=== PATIENT | female | born 1960 | race Caucasian/White ===

== ENCOUNTER 2017-12-06 15:47 | Inpatient (IN) | payer OTHER ==
[~2017-12-06] VITALS: Ht 157.5 cm; Wt 86.2 kg
[2017-12-06 15:56] VITALS: BP_SYST 200
[2017-12-06] MEDS ORDERED: NACL 0.9% 1,000 ML IV ONE ×2 (16:32→17:45)
[2017-12-06 16:40] LABS: BILIRUBIN,URINE NEGATIVE (NEGATIVE); BLOOD, URINE 3+ (NEGATIVE); CLARITY/URINE CLEAR (CLEAR); COLOR,URINE YELLOW (YELLOW); GLUCOSE,URINE NEGATIVE (NEGATIVE); KETONES,URINE NEGATIVE (NEGATIVE); LEUKOCYTE ESTERASE ,URINE NEGATIVE (NEGATIVE); NITRITE, URINE NEGATIVE (NEGATIVE); PROTEIN URINE 2+ (NEGATIVE)
[2017-12-06 16:45] LABS: RBC,URINE >100 /HPF (0-3)
[2017-12-06] MEDS ORDERED: ONDANSETRON HCL 4 MG/2 ML VIAL IVP ONE (16:45)
[2017-12-06] MEDS ORDERED: KETOROLAC TROMETHAMINE 30 MG VIAL IVP ONE (16:45)
[2017-12-06 16:46] LABS: BACTERIA,URINE FEW /HPF (None Seen); WBC,URINE 0-3 /HPF (0-3)
[2017-12-06 17:10] LABS: BASOPHILS # (AUTO) 0.1 K/uL (0.0-0.2); BASOPHILS % (AUTO) 0.8 % (0.0-2.0); EOSINOPHILS # (AUTO) 0.1 K/uL (0.0-0.4); EOSINOPHILS % (AUTO) 0.8 % (0.0-4.0); HEMATOCRIT 39.3 % (36-48); HEMOGLOBIN 12.9 g/dL (12.0-16.0); LYMPHOCYTES # (AUTO) 1.3 K/uL (1.0-5.5); LYMPHOCYTES % (AUTO) 10.9 % (20.5-51.5); MEAN CORPUSCULAR HEMOGLOBIN 29 pg (27-31); MEAN CORPUSCULAR HGB CONC 33 % (32-36); MEAN CORPUSCULAR VOLUME 87 fL (79.0-98.0); MONOCYTES # (AUTO) 0.8 K/uL (0.0-1.0); MONOCYTES % (AUTO) 6.4 % (1.7-9.3); NEUTROPHILS % (AUTO) 81.1 % (40.0-70.0); PLATELET COUNT (AUTO) 291 K/uL (130-430); RED BLOOD CELL COUNT(AUTO) 4.51 MIL/uL (4.2-6.2); RED CELL DISTRIBUTION WIDTH 12.6 % (9.0-15.0); WHITE BLOOD COUNT (AUTO) 12.3 K/uL (4.8-10.8)
[2017-12-06 17:23] LABS: CALCIUM 9.9 mg/dL (8.4-11.0); CREATININE 0.99 mg/dL (0.55-1.30); POTASSIUM 4.1 mmol/L (3.5-5.1)
[2017-12-06 17:26] LABS: PROTHROMBIN TIME 10.1 SECS (9.5-12.5)
[2017-12-06 17:28] LABS: ALBUMIN 3.9 g/dL (3.4-4.8); TOTAL BILIRUBIN 0.4 mg/dL (0.0-1.0)
[2017-12-06] MEDS ORDERED: cefTRIAXone 2 GM VIAL ONE (18:51)
[2017-12-06 19:18] VITALS: BP_SYST 179
[2017-12-06] MEDS ORDERED: LOSA1TAB3 PO (19:29)
[2017-12-06] MEDS ORDERED: TOPXL100 PO (19:29)
[2017-12-06] MEDS ORDERED: CAT.1 PO (19:29)
[2017-12-06 19:40] VITALS: BP_SYST 179
[2017-12-06 19:45] VITALS: BP_SYST 161
[2017-12-06] MEDS ORDERED: [UNRECOGNIZED DRUG - OTHER] IV ONE (20:00)
[2017-12-06] MEDS ORDERED: NACL 0.9% 1,000 ML IV SCH ×2 (20:30→21:00)
[2017-12-06] MEDS: NACL 0.9% 1,000 ML IV SCH ×2 (22:23→22:28)
[2017-12-06] MEDS ORDERED: ALBUTEROL SULFATE 0.083% 2.5 MG/3 ML VIAL.NEB INH PRN (22:30)
[2017-12-06] MEDS ORDERED: ONDANSETRON HCL 4 MG/2 ML VIAL IVP PRN (22:30)
[2017-12-06] MEDS ORDERED: MORPHINE 2 MG/ML INJ. SYRINGE IVP PRN (22:30)
[2017-12-06] MEDS ORDERED: HYDROcodone/ACETAMIN 5-325 MG TAB (NORCO/ VICODIN) PO PRN (22:30)
[2017-12-06] MEDS ORDERED: hydrALAZINE HCL 20 MG/ML VIAL IVP PRN (22:45)
[2017-12-06 23:28] VITALS: BP_SYST 146
[2017-12-06 23:37] VITALS: BP_SYST 146
[2017-12-07] MEDS ORDERED: PIPERACILLIN/TAZOBACTAM 3.375 GM/VIAL (ZOSYN) IV ONE ×2 (00:34→05:25)
[2017-12-07] MEDS: PIPERACILLIN/TAZO 3.375/DEX-IS 50 ML IV SCH ×5 (00:38→23:14)
[2017-12-07] MEDS: NACL 0.9% 1,000 ML IV SCH ×4 (05:31→23:15)
[2017-12-07 06:27] LABS: BASOPHILS # (AUTO) 0.1 K/uL (0.0-0.2); BASOPHILS % (AUTO) 0.8 % (0.0-2.0); EOSINOPHILS # (AUTO) 0.1 K/uL (0.0-0.4); EOSINOPHILS % (AUTO) 1.3 % (0.0-4.0); HEMATOCRIT 36.6 % (36-48); HEMOGLOBIN 12.2 g/dL (12.0-16.0); LYMPHOCYTES # (AUTO) 1.8 K/uL (1.0-5.5); LYMPHOCYTES % (AUTO) 19.4 % (20.5-51.5); MEAN CORPUSCULAR HEMOGLOBIN 29 pg (27-31); MEAN CORPUSCULAR HGB CONC 33 % (32-36); MEAN CORPUSCULAR VOLUME 88 fL (79.0-98.0); MONOCYTES # (AUTO) 0.9 K/uL (0.0-1.0); MONOCYTES % (AUTO) 9.5 % (1.7-9.3); NEUTROPHILS # (AUTO) 6.1 K/uL (1.8-7.7); PLATELET COUNT (AUTO) 240 K/uL (130-430); RED BLOOD CELL COUNT(AUTO) 4.17 MIL/uL (4.2-6.2); RED CELL DISTRIBUTION WIDTH 12.7 % (9.0-15.0)
[2017-12-07 07:18] LABS: ANION GAP 11 (5-15); CALCIUM 8.7 mg/dL (8.4-11.0); CHLORIDE 107 mmol/L (98-107); CREATININE 1.05 mg/dL (0.55-1.30); GLUCOSE 115 mg/dL (70-99); POTASSIUM 4.3 mmol/L (3.5-5.1); SODIUM SERUM 141 mmol/L (136-145); UREA NITROGEN, BLOOD 17 mg/dL (8-21)
[2017-12-07 07:27] LABS: GFR AFRICAN AMERICAN 69 mL/min (>90)
[2017-12-07 07:28] LABS: ALANINE AMINOTRANSFERASE 22 U/L (12-78); ASPARTATE AMINOTRANSFERASE 19 U/L (10-37); TOTAL BILIRUBIN 0.6 mg/dL (0.0-1.0)
[2017-12-07 08:02] VITALS: BP_SYST 151
[2017-12-07] MEDS: METOPROLOL SUCCINATE 50 MG TAB.SR.24H (TOPROL XL) PO SCH (08:35)
[2017-12-07] MEDS ORDERED: IOHEXOL 0 ML IV ONE (09:39)
[2017-12-07] MEDS ORDERED: fentaNYL CITRATE/PF 100 MCG/2 ML AMP IVP PRN ×2 (09:45)
[2017-12-07] MEDS ORDERED: ONDANSETRON HCL 4 MG/2 ML VIAL IVP PRN (09:45)
[2017-12-07] MEDS ORDERED: KETOROLAC TROMETHAMINE 30 MG VIAL IVP PRN (09:45)
[2017-12-07] MEDS ORDERED: cefTRIAXone 1 GM IVPB PREMIX 50 ML IV ONE (10:00)
[2017-12-07] MEDS ORDERED: NS 1000 ML BAG IV ONE (10:00)
[2017-12-07] MEDS ORDERED: MIDAZOLAM HCL 5 MG/ML VIAL (VERSED) IV ONE (10:00)
[2017-12-07] MEDS ORDERED: MORPHINE SULFATE 10MG/10ML PF AMP EP ONE (10:00)
[2017-12-07] MEDS ORDERED: BUPIVACAINE /PF 0.75% 10 ML VIAL INJ ONE (10:00)
[2017-12-07] MEDS ORDERED: NS IRRIG SOLN 5000 ML IR ONE (10:00)
[2017-12-07 12:29] VITALS: BP_SYST 136
[2017-12-07 16:40] VITALS: BP_SYST 134
[2017-12-08 00:33] VITALS: BP_SYST 151
[2017-12-08] MEDS: PIPERACILLIN/TAZO 3.375/DEX-IS 50 ML IV SCH ×2 (05:10→11:29)
[2017-12-08] MEDS: NACL 0.9% 1,000 ML IV SCH (05:12)
[2017-12-08 07:50] VITALS: BP_SYST 179
[2017-12-08] MEDS: METOPROLOL SUCCINATE 50 MG TAB.SR.24H (TOPROL XL) PO SCH (09:36)
[2017-12-08] MEDS ORDERED: CIPR500S2 PO (10:40)
[2017-12-08] MEDS ORDERED: TAMS-11 PO (10:42)
[2017-12-08 12:09] VITALS: BP_SYST 130
[2017-12-08 12:39] VITALS: BP_SYST 130
== END 2017-12-08 12:30 | disposition home or self-care (01) | DRG 694 ==
LOC: SED 15:47 → STU 18:39
PROVIDERS: ADMIT Internal Medicine; ATTEND Internal Medicine
PROC: 0T768DZ Dilation of Right Ureter with Intraluminal Device, Via Natural or Artificial Opening Endoscopic (ICD-10-PCS; principal; 2017-12-07 09:00)
DX: N20.1 Calculus of ureter (principal); N13.6 Pyonephrosis; I10 Essential (primary) hypertension; Z82.49 Family history of ischemic heart disease and other diseases of the circulatory system; Z88.8 Allergy status to other drugs, medicaments and biological substances
CPT/HCPCS: 36415; 71045; 76000; 80053; 81000-TC; 82150-TC; 82550-TC; 83605; 83690-TC; 84484; 85025; 85610-TC; 85730-TC; 87040-TC; 87081; 93005; 96361; 96365; 96375; 99285; C1769; C2625; J0360; J0696; J1885; J2250; J2274; J2405; J2543; J3490; J7030; J7060; Q9967

== ENCOUNTER 2018-02-20 18:58 | Inpatient (IN) | payer OTHER ==
[~2018-02-20] VITALS: Ht 157.5 cm; Wt 88.9 kg
[~2018-02-20 18:58] MED LIST: CAT.1 PO; CIPR500S2 PO; LOSA1TAB3 PO; TAMS-11 PO; TOPXL100 PO
[2018-02-20 19:07] VITALS: BP_SYST 158
[2018-02-20] MEDS ORDERED: NACL 0.9% 1,000 ML IV ONE ×2 (19:45→22:15)
[2018-02-20] MEDS ORDERED: ACETAMINOPHEN 500 MG TABLET PO ONE (19:45)
[2018-02-20 20:02] LABS: BILIRUBIN,URINE NEGATIVE (NEGATIVE); BLOOD, URINE 1+ (NEGATIVE); COLOR,URINE YELLOW (YELLOW); GLUCOSE,URINE NEGATIVE (NEGATIVE); KETONES,URINE NEGATIVE (NEGATIVE); LEUKOCYTE ESTERASE ,URINE 2+ (NEGATIVE); NITRITE, URINE POSITIVE (NEGATIVE); PH,URINE 5.5 (5.0-8.0); PROTEIN URINE TRACE (NEGATIVE); UROBILINOGEN,URINE 0.2 (0.2-1.0)
[2018-02-20 20:16] LABS: CLARITY/URINE HAZY (CLEAR)
[2018-02-20 20:18] LABS: RBC,URINE 0-3 /HPF (0-3); WBC,URINE 20-50 /HPF (0-3)
[2018-02-20 20:19] LABS: BACTERIA,URINE MODERATE /HPF (None Seen); MUCUS,URINE None Seen /LPF (None Seen)
[2018-02-20 20:38] LABS: HEMATOCRIT 38.1 % (36-48); HEMOGLOBIN 12.7 g/dL (12.0-16.0); MEAN CORPUSCULAR HEMOGLOBIN 28 pg (27-31); MEAN CORPUSCULAR HGB CONC 33 % (32-36); MEAN CORPUSCULAR VOLUME 84 fL (79.0-98.0); PLATELET COUNT (AUTO) 234 K/uL (130-430); RED BLOOD CELL COUNT(AUTO) 4.52 MIL/uL (4.2-6.2); RED CELL DISTRIBUTION WIDTH 13.7 % (9.0-15.0); WHITE BLOOD COUNT (AUTO) 10.8 K/uL (4.8-10.8)
[2018-02-20 20:48] LABS: CALCIUM 9.8 mg/dL (8.4-11.0); CREATININE 0.8 mg/dL (0.55-1.30); POTASSIUM 4.1 mmol/L (3.5-5.1); PROTHROMBIN TIME 9.8 SECS (9.5-12.5)
[2018-02-20 20:52] LABS: BAND % (MANUAL) 6 % (0-6); BASOPHILS % (MANUAL) 0 % (0-2); EOSINOPHILS % (MANUAL) 1 % (0-7); LYMPHOCYTES % (MANUAL) 4 % (20-46); MONOCYTES % (MANUAL) 2 % (0-11)
[2018-02-20 20:53] LABS: ALBUMIN 3.4 g/dL (3.4-4.8); TOTAL BILIRUBIN 0.4 mg/dL (0.0-1.0)
[2018-02-20] MEDS ORDERED: cefTRIAXone 1 GM IVPB PREMIX 50 ML IV ONE ×2 (21:15→23:02)
[2018-02-20] MEDS ORDERED: LOSA50TA3 PO (21:41)
[2018-02-20] MEDS ORDERED: CAT.1 PO (21:41)
[2018-02-20] MEDS ORDERED: TOPXL100 PO (21:41)
[2018-02-20] MEDS ORDERED: ACETAMINOPHEN 325 MG TABLET PO PRN (22:15)
[2018-02-20 22:44] VITALS: BP_SYST 116
[2018-02-20] MEDS ORDERED: GENTAMICIN 120 mg/100 mL NS 100 ML IV SCH (23:00)
[2018-02-20] MEDS ORDERED: GENTAMICIN 120 mg/100 mL NS 100 ML IV ONE (23:03)
[2018-02-20] MEDS: NACL 0.9% 1,000 ML IV SCH (23:15)
[2018-02-21 04:19] VITALS: BP_SYST 115
[2018-02-21 07:57] VITALS: BP_SYST 146
[2018-02-21] MEDS: LOSARTAN POTASSIUM 50 MG TABLET (COZAAR) PO SCH (08:07)
[2018-02-21] MEDS: cloNIDine HCL 0.1 MG TABLET PO SCH ×2 (08:07→20:39)
[2018-02-21] MEDS: METOPROLOL SUCCINATE 50 MG TAB.SR.24H (TOPROL XL) PO SCH (08:08)
[2018-02-21] MEDS: NACL 0.9% 1,000 ML IV SCH ×2 (09:11→19:31)
[2018-02-21 11:34] VITALS: BP_SYST 139
[2018-02-21] MEDS ORDERED: *TOBRAMYCIN PER PHARMACY XX PRN (14:00)
[2018-02-21 15:44] VITALS: BP_SYST 132
[2018-02-21] MEDS: TOBRAMYCIN SULFATE 100 MG in NS 50 ML IV SCH (17:01)
[2018-02-21 19:25] VITALS: BP_SYST 126
[2018-02-21] MEDS: cefTRIAXone 1 GM IVPB PREMIX 50 ML IV SCH (20:38)
[2018-02-22 00:39] VITALS: BP_SYST 154
[2018-02-22] MEDS: TOBRAMYCIN SULFATE 100 MG in NS 50 ML IV SCH ×2 (04:47→16:37)
[2018-02-22] MEDS: NACL 0.9% 1,000 ML IV SCH ×4 (04:48→23:19)
[2018-02-22 08:17] VITALS: BP_SYST 148
[2018-02-22] MEDS: cloNIDine HCL 0.1 MG TABLET PO SCH ×2 (09:31→20:24)
[2018-02-22] MEDS: METOPROLOL SUCCINATE 50 MG TAB.SR.24H (TOPROL XL) PO SCH (09:32)
[2018-02-22] MEDS: LOSARTAN POTASSIUM 50 MG TABLET (COZAAR) PO SCH (09:32)
[2018-02-22 12:00] VITALS: BP_SYST 125
[2018-02-22 16:00] VITALS: BP_SYST 115
[2018-02-22 19:48] VITALS: BP_SYST 155
[2018-02-22] MEDS: cefTRIAXone 1 GM IVPB PREMIX 50 ML IV SCH (20:22)
[2018-02-23 00:24] VITALS: BP_SYST 144
[2018-02-23] MEDS: TOBRAMYCIN SULFATE 100 MG in NS 50 ML IV SCH ×2 (04:39→16:16)
[2018-02-23 07:13] LABS: HEMATOCRIT 37.7 % (36-48); HEMOGLOBIN 12.5 g/dL (12.0-16.0); MEAN CORPUSCULAR HEMOGLOBIN 28 pg (27-31); MEAN CORPUSCULAR HGB CONC 33 % (32-36); MEAN CORPUSCULAR VOLUME 86 fL (79.0-98.0); PLATELET COUNT (AUTO) 248 K/uL (130-430); RED CELL DISTRIBUTION WIDTH 13.8 % (9.0-15.0); WHITE BLOOD COUNT (AUTO) 6.6 K/uL (4.8-10.8)
[2018-02-23 07:44] LABS: ALBUMIN 3.1 g/dL (3.4-4.8); CREATININE 0.82 mg/dL (0.55-1.30); TOTAL BILIRUBIN 0.3 mg/dL (0.0-1.0)
[2018-02-23 08:11] VITALS: BP_SYST 147
[2018-02-23] MEDS: LOSARTAN POTASSIUM 50 MG TABLET (COZAAR) PO SCH (08:56)
[2018-02-23] MEDS: cloNIDine HCL 0.1 MG TABLET PO SCH (08:56)
[2018-02-23] MEDS: METOPROLOL SUCCINATE 50 MG TAB.SR.24H (TOPROL XL) PO SCH (08:56)
[2018-02-23] MEDS: NACL 0.9% 1,000 ML IV SCH (09:20)
[2018-02-23 11:12] LABS: ATYPICAL LYMPHOCYTES % 0 % (0-0); BAND % (MANUAL) 0 % (0-6); BASOPHILS % (MANUAL) 0 % (0-2); EOSINOPHILS % (MANUAL) 2 % (0-7); LYMPHOCYTES % (MANUAL) 36 % (20-46); MONOCYTES % (MANUAL) 6 % (0-11)
[2018-02-23 12:01] VITALS: BP_SYST 114
[2018-02-23 16:05] VITALS: BP_SYST 149
[2018-02-23 17:37] VITALS: BP_SYST 149
== END 2018-02-23 15:00 | disposition home or self-care (01) | DRG 872 ==
LOC: SED 18:58 → STU 22:13 → SMU 02-21 14:00
PROVIDERS: ADMIT Internal Medicine; ATTEND Internal Medicine
DX: A41.50 Gram-negative sepsis, unspecified (principal); N10 Acute pyelonephritis; I10 Essential (primary) hypertension; N20.0 Calculus of kidney; J44.9 Chronic obstructive pulmonary disease, unspecified; E66.9 Obesity, unspecified; Z68.35 Body mass index [BMI] 35.0-35.9, adult; Z87.442 Personal history of urinary calculi; Z88.8 Allergy status to other drugs, medicaments and biological substances; Z79.899 Other long term (current) drug therapy; Z90.49 Acquired absence of other specified parts of digestive tract
CPT/HCPCS: 36415; 71045; 76700-TC; 80053; 80200; 81000-TC; 83605; 85007; 85027; 85610-TC; 87040-TC; 87070-TC; 87086; 87186-TC; 87205-TC; 93005; 96361; 96365; 99291; J0696; J1580; J3260; J7030

== ENCOUNTER 2018-07-27 00:47 | Inpatient (IN) | payer OTHER ==
[~2018-07-27] VITALS: Ht 157.5 cm; Wt 86.2 kg
[2018-07-27 00:47] VITALS: BP_SYST 183
[~2018-07-27 00:47] MED LIST changes: -CIPR500S2 PO; -LOSA1TAB3 PO; +LOSA50TA3 PO; -TAMS-11 PO
[2018-07-27] MEDS ORDERED: MORPHINE 4 MG/ML INJ. SYRINGE IVP ONE (01:00)
[2018-07-27 01:27] LABS: BASOPHILS # (AUTO) 0.1 K/uL (0.0-0.2); BASOPHILS % (AUTO) 0.7 % (0.0-2.0); EOSINOPHILS # (AUTO) 0.1 K/uL (0.0-0.4); EOSINOPHILS % (AUTO) 1.4 % (0.0-4.0); HEMATOCRIT 42.2 % (36-48); HEMOGLOBIN 13.7 g/dL (12.0-16.0); LYMPHOCYTES # (AUTO) 2.1 K/uL (1.0-5.5); LYMPHOCYTES % (AUTO) 25.6 % (20.5-51.5); MEAN CORPUSCULAR HEMOGLOBIN 29 pg (27-31); MEAN CORPUSCULAR HGB CONC 33 % (32-36); MEAN CORPUSCULAR VOLUME 89 fL (79.0-98.0); MONOCYTES # (AUTO) 0.9 K/uL (0.0-1.0); MONOCYTES % (AUTO) 11.1 % (1.7-9.3); NEUTROPHILS # (AUTO) 5.1 K/uL (1.8-7.7); NEUTROPHILS % (AUTO) 61.2 % (40.0-70.0); PLATELET COUNT (AUTO) 227 K/uL (130-430); RED BLOOD CELL COUNT(AUTO) 4.74 MIL/uL (4.2-6.2); RED CELL DISTRIBUTION WIDTH 13.4 % (9.0-15.0); WHITE BLOOD COUNT (AUTO) 8.3 K/uL (4.8-10.8)
[2018-07-27 01:31] LABS: CALCIUM 10.3 mg/dL (8.4-11.0); CREATININE 0.75 mg/dL (0.55-1.30); POTASSIUM 3.6 mmol/L (3.5-5.1)
[2018-07-27 01:39] LABS: ALBUMIN 3.8 g/dL (3.4-4.8); TOTAL BILIRUBIN 0.6 mg/dL (0.0-1.0)
[2018-07-27 02:46] VITALS: BP_SYST 149
[2018-07-27 04:33] LABS: BILIRUBIN,URINE NEGATIVE (NEGATIVE); BLOOD, URINE NEGATIVE (NEGATIVE); CLARITY/URINE CLEAR (CLEAR); COLOR,URINE YELLOW (YELLOW); GLUCOSE,URINE NEGATIVE (NEGATIVE); KETONES,URINE NEGATIVE (NEGATIVE); LEUKOCYTE ESTERASE ,URINE NEGATIVE (NEGATIVE); NITRITE, URINE NEGATIVE (NEGATIVE); PROTEIN URINE NEGATIVE (NEGATIVE); UROBILINOGEN,URINE 0.2 (0.2-1.0)
[2018-07-27] MEDS ORDERED: MORPHINE 4 MG/ML INJ. SYRINGE IVP PRN ×2 (06:00)
[2018-07-27] MEDS ORDERED: ONDANSETRON HCL 4 MG/2 ML VIAL IVP PRN (06:00)
[2018-07-27 08:00] VITALS: BP_SYST 118
[2018-07-27 11:20] VITALS: BP_SYST 134
[2018-07-27 15:38] VITALS: BP_SYST 137
[2018-07-27 20:25] VITALS: BP_SYST 159
[2018-07-28 00:55] VITALS: BP_SYST 148
[2018-07-28 07:33] LABS: ALBUMIN 3.3 g/dL (3.4-4.8); CALCIUM 9.8 mg/dL (8.4-11.0); CREATININE 0.68 mg/dL (0.55-1.30); FREE T4 (FREE THYROXINE) 0.7 ng/dL (0.6-1.6); POTASSIUM 3.9 mmol/L (3.5-5.1); THYROID STIMULATING HORMONE 1.56 uIu/mL (0.34-4.82)
[2018-07-28 08:00] VITALS: BP_SYST 149
[2018-07-28 08:06] LABS: BASOPHILS # (AUTO) 0.1 K/uL (0.0-0.2); BASOPHILS % (AUTO) 0.7 % (0.0-2.0); EOSINOPHILS # (AUTO) 0.1 K/uL (0.0-0.4); EOSINOPHILS % (AUTO) 1.4 % (0.0-4.0); HEMATOCRIT 40.6 % (36-48); HEMOGLOBIN 13.3 g/dL (12.0-16.0); LYMPHOCYTES # (AUTO) 2.2 K/uL (1.0-5.5); LYMPHOCYTES % (AUTO) 30.2 % (20.5-51.5); MEAN CORPUSCULAR HEMOGLOBIN 29 pg (27-31); MEAN CORPUSCULAR HGB CONC 33 % (32-36); MEAN CORPUSCULAR VOLUME 90 fL (79.0-98.0); MONOCYTES # (AUTO) 0.8 K/uL (0.0-1.0); NEUTROPHILS # (AUTO) 4.2 K/uL (1.8-7.7); NEUTROPHILS % (AUTO) 56.7 % (40.0-70.0); PLATELET COUNT (AUTO) 221 K/uL (130-430); RED BLOOD CELL COUNT(AUTO) 4.51 MIL/uL (4.2-6.2); RED CELL DISTRIBUTION WIDTH 13.1 % (9.0-15.0); WHITE BLOOD COUNT (AUTO) 7.4 K/uL (4.8-10.8)
[2018-07-28] MEDS ORDERED: REGADENOSON 0.4 MG/5 ML SYRINGE IVP ONE (09:30)
[2018-07-28 12:29] VITALS: BP_SYST 131
[2018-07-28 15:49] VITALS: BP_SYST 136
[2018-07-28 16:19] VITALS: BP_SYST 140
== END 2018-07-28 16:15 | disposition home or self-care (01) | DRG 313 ==
LOC: SED 00:47 → STU 02:03
PROVIDERS: ADMIT Internal Medicine; ATTEND Internal Medicine
DX: R07.89 Other chest pain (principal); J44.9 Chronic obstructive pulmonary disease, unspecified; E78.5 Hyperlipidemia, unspecified; E66.9 Obesity, unspecified; I10 Essential (primary) hypertension; Z88.8 Allergy status to other drugs, medicaments and biological substances; Z79.899 Other long term (current) drug therapy; Z87.442 Personal history of urinary calculi; Z68.34 Body mass index [BMI] 34.0-34.9, adult
CPT/HCPCS: 36415; 71045; 80053; 80061; 81003; 83735-TC; 83880; 84439; 84443-TC; 84484; 85025; 93005; 93017; 93306; 96374; 99285; A9500; G0378; J2270; J2785

== ENCOUNTER 2019-11-15 19:35 | Emergency (ER) | payer OTHER ==
[~2019-11-15] VITALS: Ht 157.5 cm; Wt 83.9 kg
[2019-11-15 19:40] VITALS: BP_SYST 206
--- NOTE | 2019-11-15 19:45 | NUR ---
Placed in room 2 . Placed on lunchroom monitor, blood pressure machine and pulse oximeter. To gown for exam. Side rails up. Report given to Pillo REILLY.
--- NOTE | 2019-11-15 20:05 | NUR ---
Pt C/O abdominal pain since 1600 this afternoon associated with nausea and vomitting. Pt has hx of kidney stones and reports feels similar. Denies any SOB, CP, dysuria or any other symptoms at this time. Will continue to monitor.
--- NOTE | 2019-11-15 20:15 | NUR ---
ER Dr. Zuñiga at bedside examining patient.
[2019-11-15] MEDS ORDERED: NACL 0.9% 1,000 ML IV ONE (20:19)
[2019-11-15] MEDS ORDERED: KETOROLAC TROMETHAMINE 30 MG VIAL IVP ONE (20:30)
[2019-11-15] MEDS ORDERED: ONDANSETRON HCL 4 MG/2 ML VIAL IVP ONE (20:45)
[2019-11-15 21:06] LABS: BILIRUBIN,URINE NEGATIVE (NEGATIVE); CLARITY/URINE CLEAR (CLEAR); COLOR,URINE YELLOW (YELLOW); GLUCOSE,URINE NEGATIVE (NEGATIVE); KETONES,URINE NEGATIVE (NEGATIVE); LEUKOCYTE ESTERASE ,URINE NEGATIVE (NEGATIVE); NITRITE, URINE NEGATIVE (NEGATIVE); PROTEIN URINE 1+ (NEGATIVE); UROBILINOGEN,URINE 0.2 (0.2-1.0)
[2019-11-15 21:07] LABS: HEMATOCRIT 40.5 % (36-48); HEMOGLOBIN 13.5 g/dL (12.0-16.0); MEAN CORPUSCULAR HEMOGLOBIN 30 pg (27-31); MEAN CORPUSCULAR VOLUME 89 fL (79.0-98.0); RED BLOOD CELL COUNT(AUTO) 4.55 MIL/uL (4.2-6.2); WHITE BLOOD COUNT (AUTO) 11.6 K/uL (4.8-10.8)
[2019-11-15 21:08] LABS: BASOPHILS % (AUTO) 0.5 % (0.0-2.0); EOSINOPHILS % (AUTO) 0.4 % (0.0-4.0); LYMPHOCYTES # (AUTO) 1.2 K/uL (1.0-5.5); LYMPHOCYTES % (AUTO) 10.6 % (20.5-51.5); MEAN CORPUSCULAR HGB CONC 33 % (32-36); MONOCYTES # (AUTO) 0.7 K/uL (0.0-1.0); MONOCYTES % (AUTO) 5.7 % (1.7-9.3); NEUTROPHILS # (AUTO) 9.6 K/uL (1.8-7.7); NEUTROPHILS % (AUTO) 82.8 % (40.0-70.0); PLATELET COUNT (AUTO) 250 K/uL (130-430); RED CELL DISTRIBUTION WIDTH 13.7 % (9.0-15.0)
[2019-11-15 21:09] LABS: BASOPHILS # (AUTO) 0.1 K/uL (0.0-0.2)
--- NOTE | 2019-11-15 21:15 | NUR ---
Pt is laying in bed, no acute distress noted at this time. Will continue to monitor.
[2019-11-15 21:27] LABS: CALCIUM 9.8 mg/dL (8.4-11.0); CREATININE 1.07 mg/dL (0.55-1.30); POTASSIUM 4.3 mmol/L (3.5-5.1)
[2019-11-15 21:32] LABS: ALBUMIN 3.8 g/dL (3.4-4.8); TOTAL BILIRUBIN 0.4 mg/dL (0.0-1.0)
[2019-11-15 21:41] LABS: BLOOD, URINE TRACE (NEGATIVE)
[2019-11-15 21:49] LABS: BACTERIA,URINE FEW /HPF (None Seen); RBC,URINE 0-3 /HPF (0-3)
[2019-11-15 21:50] LABS: CALCIUM OXALATE CRYSTALS,UR None Seen /HPF (None Seen); CALCIUM PHOSPHATE CRYSTALS,UR None Seen /HPF (None Seen); COARSE GRANULAR CASTS,URINE None Seen /LPF (None Seen); FINE GRANULAR CASTS,URINE None Seen /LPF (None Seen); HYALINE CASTS, URINE None Seen /LPF (None Seen); OTHER CASTS, URINE None Seen /LPF (None Seen); OTHER CRYSTALS,URINE None Seen /HPF (None Seen); TRICHOMONAS,URINE None Seen /HPF (None Seen); TRIPLE PHOSPHATE CRYSTAL,UR None Seen /HPF (None Seen); URIC ACID CRYSTALS,URINE None Seen /HPF (None Seen); URINE AMORPHOUS PHOSPHATES None Seen /HPF (None Seen); URINE AMORPHOUS URATE None Seen /HPF (None Seen); WAXY CASTS,URINE None Seen /LPF (None Seen); YEAST,URINE None Seen /HPF (None Seen)
[2019-11-15 21:51] LABS: MUCUS,URINE None Seen /LPF (None Seen)
--- NOTE | 2019-11-15 22:30 | NUR ---
Pt is resting in bed no acute distress noted at this time. Will continue to monitor.
[2019-11-15] MEDS ORDERED: cefTRIAXone 1 GM in D5W 50 ML IV ONE (22:45)
[2019-11-15] MEDS ORDERED: cefTRIAXone 1 GM VIAL ONE (23:18)
[2019-11-15 23:52] VITALS: BP_SYST 147
--- NOTE | 2019-11-15 23:54 | NUR ---
Patient given written and verbal discharge instructions and verbalizes understanding. ER MD discussed with patient the results and treatment provided. Patient in stable condition. ID arm band removed. IV catheter removed intact and dressing applied, no active bleeding. Rx of Flomax, Motrin, Keflex, and [place] given. Patient educated on pain management and to follow up with PMD. Pain Scale 3/10. Opportunity for questions provided and answered. Medication side effect fact sheet provided.
== END 2019-11-15 23:52 | disposition home or self-care (01) ==
LOC: SED 19:35
DX: N39.0 Urinary tract infection, site not specified (principal); N23 Unspecified renal colic; J44.9 Chronic obstructive pulmonary disease, unspecified; I10 Essential (primary) hypertension; Z88.8 Allergy status to other drugs, medicaments and biological substances
CPT/HCPCS: 36415; 74176; 80053; 81000; 85025; 96365; 96375; 99284; J0696; J1885; J2405; J7030